=== PATIENT | female | born 1960 | race Caucasian/White ===

== ENCOUNTER 2022-09-02 10:27 | Day surgery (SDC) | payer OTHER ==
[~2022-09-02] VITALS: Ht 170.2 cm; Wt 109.1 kg
[~2022-09-02 10:27] MED LIST: ACET650T9 PO; ALBU8HFA IH; ATOR40TA71 PO; BACL10TA PO; CHOL200059 PO; DULA0.75 SQ; FAMO20TA8 PO; ISOS30TA92 PO; KETO10DR3 OU; LISI20TA24 PO; MELO-108 PO; POLY17PO47 PO; RANO500T6 PO; SODIUM CHLORIDE 0.9% 1,000 ML IV ONE; SODIUM CHLORIDE 0.9% 1,000 ML ONE; TRAM-559 PO
[2022-09-02 10:48] LABS: COVID AG,FIA SOURCE NASAL SWAB
[2022-09-02 11:31] LABS: GLUCOMETER DEV NAME(LOC) SDS.; GLUCOSE,POINT OF CARE 102 MG/DL (70-110)
[2022-09-02] MEDS ORDERED: PROPOFOL 1% 20 ML VIAL IVP ONE (12:00)
== END 2022-09-02 14:45 | disposition home or self-care (01) ==
LOC: SURGERY 10:27 → EDUNIT# 12:30 → SURGERY 14:45
PROVIDERS: ATTEND Internal Medicine Gastroenterology
DX: K29.50 Unspecified chronic gastritis without bleeding (principal); E11.9 Type 2 diabetes mellitus without complications; F64.9 Gender identity disorder, unspecified; Z82.49 Family history of ischemic heart disease and other diseases of the circulatory system; Z83.3 Family history of diabetes mellitus; Z79.899 Other long term (current) drug therapy; Z20.822 Contact with and (suspected) exposure to COVID-19; Z88.8 Allergy status to other drugs, medicaments and biological substances; Z79.82 Long term (current) use of aspirin; Z98.890 Other specified postprocedural states
CPT/HCPCS: 43239; 87426; 82962; C1769; J2704; J7030; C9803